=== PATIENT | female | born 1990 | race Caucasian/White ===

== ENCOUNTER 2024-08-20 15:56 | Emergency (ER) | payer OTHER, SELFPAY ==
--- NOTE | 2024-08-20 16:00 | XRR_ITS ---
PROCEDURE INFORMATION: Exam: XR Right Foot Exam date and time: 08/20/2024 4:08 PM Age: 33 years old Clinical indication: Foot; Right; Patient HX: RT 2nd toe pain no trauma TECHNIQUE: Imaging protocol: Radiologic exam of the right foot. Views: 3 or more views. COMPARISON: No relevant prior studies available. FINDINGS: Bones/joints: No acute fracture is seen. The joints are unremarkable. No significant degenerative changes. Medial midfoot accessory ossicle. Soft tissues: Unremarkable. XR/XR foot RT min 3V* [id number] IMPRESSION: Unremarkable.
[2024-08-20 16:17] VITALS: BP 111/60; PULSE 82; RESP 18; TEMP 36.8; O2SAT 100; BMI 25.0
[2024-08-20] MEDS: ketorolac 60 mg/2 mL INJ IM (18:34)
[2024-08-20 18:44] VITALS: BP 104/54; PULSE 84; O2SAT 99
[2024-08-20 19:05] VITALS: BP 104/54; PULSE 80; O2SAT 97
--- NOTE | 2024-08-20 20:07 | ED_ITS ---
HPI - Extremity Problem General: Chief complaint: Extremity Problem,Nontraumatic Stated complaint: right foot pain Time Seen by Provider: 08/20/24 17:28 Source: patient Mode of arrival: ambulatory Limitations: no limitations History of Present Illness: Patient is a 33-year-old female who presents to the emergency department with recurrent right foot pain. States that over the past month or so she has had pain diffusely in all of her joints, currently is getting established with primary care and is set to see them in the next few days. States that today the pain in her right foot started, was atraumatic with no twisting or other injury to report. States it hurts to walk on it, but denies any swelling, bruising, redness, or other symptoms. She did take prednisone as she was seen in urgent c are yesterday for wrist pain, states this helped her wrist pain. Has not tried Tylenol or ibuprofen yet and no other conservative treatments tried. MD Complaint: extremity pain Onset (ago): day(s) Pain Consistency: constant Location: right and lower extremity (Foot) Associated symptoms: Deny chest pain, fever(s) or rash Related Data Allergies Allergy/AdvReac Type Severity Reaction Status Date / Time No Known Allergies Allergy Verified 08/20/24 16:20 Review of Systems General: Reports: 10 or more systems reviewed and unremarkable except in HPI and below Const: Denies: fever(s) or chills Card: Denies: chest pain Resp: Denies: dyspnea or productive cough GI: Denies: abdominal pain, nausea, vomiting or diarrhea : Denies: flank pain Musc: Reports: extremity pain (Right foot); Denies: neck pain, back pain, extremity swelling, joint pain, joint swelling, joint redness, joint warmth, limited range of motion or muscle weakness Skin/Breast: Denies: rash Neuro: Denies: headache(s), numbness in extremities or weakness in extremities Physical Exam Const: COMMON NORMALS: no acute distress, patient oriented x3, no limitations, healthy appearing, alert and well nourished OTHER: Tearful HENMT: COMMON NORMALS: normocephalic and atraumatic HEAD & SCALP: normocephalic and atraumatic Neck/C-Spine: COMMON NORMALS: full ROM, supple and no meningeal signs Resp: COMMON NORMALS: normal respiratory effort, No use of accessory muscles and clear to auscultation bilaterally AUSCULTATION: clear to auscultation bilaterally Cardio: COMMON NORMALS: regular rate and regular rhythm RATE: regular rate RHYTHM: regular rhythm Extremity: COMMON NORMALS: normal to inspection, full ROM, capillary refill normal, no joint enlargement and no clubbing, cyanosis or edema NARRATIVE EXTREMITY EXAM: Expressing tenderness to very light palpation to the dorsum of the right foot, there are no signs of trauma or deformity. There is no bruising in her DP/PT pulses are 2+. Neuro: COMMON NORMALS: patient oriented x3, moves all extremities, no focal mo tor deficits and no sensory deficits noted SENSORIUM/ORIENTATION: Yes alert MENINGEAL SIGNS: Yes no meningeal signs Skin: COMMON NORMALS: no rashes or lesions noted GENERAL SKIN EXAM: no rashes or lesions noted Course Vital Signs: Vital signs: Vital Signs Temperature 98.2 F 08/20/24 16:17 Pulse Rate 80 08/20/24 19:05 Respiratory Rate 18 08/20/24 16:17 Blood Pressure 104/54 08/20/24 19:05 Pulse Oximetry 97 08/20/24 19:05 Oxygen Delivery Me thod Room Air 08/20/24 18:44 MDM - Extremity (Nontraumatic) Medical Decision Making Patient presents with right foot pain, has been complaining of musculoskeletal pain that has been going on diffusely throughout her body for few months now. She has primary care established and has set to see them in a couple of days, with her foot pain now there are no signs of injury whatsoever and her x-ray was normal. Unknown what is causing her pain, differential could be autoimmune rheumatological disease or other arthritis, however we will have her continue taking her prednisone that she was prescribed and take Tylenol and ibuprofen. Encouraged her to weight-bear as tolerated and do gentle range of motion exercises and return with any new or worsening. XR interpretation done by ED provider, pending radiology final review ED provider radiology interpretation(s): X-ray right foot does not demonstrate any acute abnormalities. Discharge Plan Discharge Patient Disposition: Home Clinical Impression: Acute pain of right foot Condition: Stable Discharge Orders: Discharge ED (Routine); Ordered 08/20/24 Ordered By: Shelton Vega Referrals: Yoshi Guthrie MD [Primary Care Provider] - Activity Restrictions/Additional Instructions: Your x-ray today was normal. Please keep plan for follow-up with primary care for further outpatient evaluation. Begin taking ibuprofen and Tylenol for your pain, work note provided. Continue taking prescription for steroids. Return with any new or worsening. Stand Alone Forms: Work/School Release Coding Level of Care Code ED [employer] for [employer] [place]
== END 2024-08-20 19:09 | disposition home or self-care (01) ==
PROVIDERS: Emergency Provider Physician Assistant; PCP Family Medicine
DX: M79.671 Pain in right foot (principal)
CPT/HCPCS: 73630; 96372; 99284; E0114; J1885